=== PATIENT | female | born 1960 | race Caucasian/White ===

== ENCOUNTER 2018-04-28 20:54 | Inpatient (IN) | payer BC ==
[2018-04-28] MEDS ORDERED: Succinylcholine Chloride 20 MG/ML 10 ml SYRINGE FS ONE (21:07)
[2018-04-28] MEDS ORDERED: Naloxone HCl 0.4 mg/ml Vial ONE (21:09)
[2018-04-28 21:25] LABS: Base Excess-Venous -4.9 mmol/L (0 (+/- 2.5)); Bicarbonate (HCO3v) 19.9 mmol/L (1.0-85.0); CO2 Tension (PvCO2) 34.9 mmHg (41.0-51.0); Calcium, Ionized 1.03 mmol/L (1.12-1.32); Hemoglobin - Calc 10.8 g/dL (12.0-18.0); Lactate 1.13 mmol/L (0.50-2.20); Potassium 3.8 mmol/L (3.4-4.7); T. Carbon Dioxide 20.9 mmol/L (1.0-85.0); pH (Venous) 7.363 (7.35-7.45); vO2 Saturation-calc 57.9 % (94-98)
[2018-04-28] MEDS ORDERED: Propofol 1,000 MG/100 ML VIAL IV ONE (21:32)
[2018-04-28 21:35] LABS: Mean Corpuscular HGB CONC 32.8 g/dL (32.0-36.0); Mean Corpuscular Volume 82.4 fL (78.0-98.0); Platelet Count 362 thou/uL (130-400); RBC Distribution Width 14.9 % (11.5-14.5); Red Blood Cell (RBC) Count 3.71 mill/uL (4.20-5.40); White Blood Cell (WBC) Count 16.7 thou/uL (4.8-10.8)
[2018-04-28 21:46] LABS: ALT (SGPT) 9 U/L (8-55); AST (SGOT) 26 U/L (5-34); Albumin 3.8 g/dL (3.5-5.0); Alkaline Phosphatase 96 U/L (40-150); Anion Gap 13 mmol/L (10-20); BUN (Urea Nitrogen) 23 mg/dL (9.8-20.1); Bilirubin, Total 0.2 mg/dL (0.2-1.2); CRP (Inflammatory) 12.78 mg/dL (= or < 0.5); Calc. Creatinine Clearance 0 mL/min (70-130); Calcium 9.1 mg/dL (7.8-10.44); Carbon Dioxide 21 mmol/L (22-29); Chloride 107 mmol/L (98-107); Estimated GFR-MDRD 38; Globulin 3.7 g/dL (2.4-3.5); Glucose 106 mg/dL (70-105); Protein, Total 7.5 g/dL (6.0-8.3); Sodium 137 mmol/L (136-145)
[2018-04-28] MEDS ORDERED: Lorazepam 2 MG/ML VIAL ONE (21:46)
[2018-04-28 21:56] LABS: Acetaminophen Less than 6.0 mcg/mL (10.0-30.0); Alcohol Less than 10 mg/dL (Less than 10); Band 3 % (5-11); Lymphocytes 10 % (21-51); MDiff Complete? YES; Macrocytosis SLIGHT = 6-15 cells (100X) (0-5/hpf); Monocytes 4 % (0-10); Neutrophil 83 % (42-75); PLT Morphology Comment Appears Adequate; Salicylate Less than 8.0 mg/dL (15.0-30.0)
[2018-04-28 22:05] LABS: Actual Bicarbonate (HCO3a) 17.9 mEq/L (22-28); Base Excess (BEa) -7.9 mEq/L (-2.0 to +3.0); CO2 Tension 37.8 mmHg (35.0-45.0); Hematocrit-ABG 28.4 % (36.0-47.0); Hemoglobin (Hb) 8.3 g/dL (12.0-16.0); O2 Tension (PaO2) 152.7 mmHg (80.0-100.0)
[2018-04-28 22:06] LABS: Calcium, Ionized 1.2 mmol/L (1.12-1.30)
[2018-04-28 22:07] LABS: Analyzer IN Cardio ER; Puncture Site RBA
[2018-04-28 22:31] LABS: Bilirubin Negative (Negative); Blood, Urine Negative (Negative); Clarity CLEAR (Clear); Glucose, Urine (Dipstick) Negative (Negative); Leukocyte Negative (Negative); Nitrite Negative (Negative); Protein, Urine (Dipstick) Negative (Neg-Trace); Specific Gravity, Urine 1.021 (1.002-1.036); Urobilinogen 0.2 mg/dL (0.2-1.0)
--- NOTE | 2018-04-28 22:31 | RAD ---
ONE VIEW CHEST: 04/28/18 HISTORY: Altered mental status. Patient found with unknown cause of altered mental status. Neck pain. COMPARISON: 12/29/16 FINDINGS: Redemonstration of a cervical fusion plate. Endotracheal tube at the level of the clavicles. Nasogast nohemy tube is in the left upper quadrant. Heart size is normal. There are bilateral perihilar interstit ial and alveolar infiltrates. No pleural effusion. No pneumothorax or osseous abnormality. IMPRESSION: 1. Endotracheal and nasogastric tube as above. 2. Bilateral interstitial and alveolar infiltrates. Correlate for edema, aspiration versus pneum onia. POS: [facility]
[2018-04-28 22:38] LABS: Amphetamine Detected (NotDetected); Barbiturates Screen Not Detected (NotDetected); Benzodiazepine Screen Not Detected (NotDetected); Cocaine Metabolite Screen Not Detected (NotDetected); Medtox Control Line Valid? VALID (VALID); Medtox Reader # READER 1; Methadone Not Detected (NotDetected); Methamphetamine Not Detected (NotDetected); Opiate Screen Not Detected (NotDetected); Oxycodone Screen Not Detected (NotDetected); Phencyclidine (PCP) Not Detected (NotDetected); THC/Cannabinoid Screen Not Detected (NotDetected); Tricyclic Screen Detected (NotDetected)
--- NOTE | 2018-04-28 22:40 | CT ---
HEAD CT WITHOUT CONTRAST 04/28/18 COMPARISON: 01/12/17. HISTORY: Altered mental status. Evaluate for possible overdose. FINDINGS: No parenchymal hemorrhage. No extra-axial hematoma. No midline shift. Basilar cisterns are patent. Br ain volume is age appropriate. Cortical lawrence-white matter differentiation is preserved. Ventricles and sulci are patent and symmetric. There is left maxillary sinus disease. Mild mucosal thickening of the anterior ethmoid air cells. Keerthi quate mastoid air cell aeration. The calvarium is intact. IMPRESSION: 1. No acute intracranial process. 2. Left sinus disease. POS: [facility]
[2018-04-28] MEDS ORDERED: Piperacillin/Tazobactam 4.5 GM VIAL ONE (22:44)
[2018-04-28] MEDS ORDERED: Sodium Chloride 0.9% 100 ML ONE (22:44)
[2018-04-28 22:46] LABS: Troponin I Less than 0.010 ng/mL (< 0.028)
[2018-04-28 22:49] LABS: CKMB 11.6 ng/mL (0-6.6)
--- NOTE | 2018-04-28 22:58 | CT ---
CT CERVICAL SPINE WITHOUT CONTRAST: 04/28/18 HISTORY: Possible overdose. Altered mental status. COMPARISON: 01/12/17. FINDINGS: No craniocervical dissociation. Lateral masses of C1 and C2 as well as the facets have appropriate ar ticulation. There is straightening of the normal cervical lordosis with slight reversal of lordosis c entered at C5-C6. Findings are unchanged from the previous examination. There is stable anterolisthes is of C3 upon C4. Uncomplicated cervical fusion hardware at C5, C6 and C7. Disc prosthesis at C5-C6 a nd C6-C7 is noted. There is no prevertebral soft tissue swelling. There are varying degrees of central canal stenosis an d foraminal narrowing on the basis of degenerative change. Evaluation is limited by technique. Heterogeneous thyroid gland is noted. There are bilateral alveolar opacities in the lung apices. René elate for volume overload, aspiration, lung parenchymal changes secondary to inhalation of a noxious substance. Note is made of an endotracheal and nasogastric tube. Cervical spine vertebral body height is maintained. There are no cervical spine fractures. IMPRESSION: 1. No cervical spine fracture. 2. Uncomplicated cervical fusion hardware. Stable degenerative changes with stable alignment of the cervical spine. 3. Alveolar opacities in the visualized lung apices as described above. Correlate for volume ove rload, pulmonary edema, aspiration, lung parenchymal changes due to inhalation of a noxious substance . POS: [facility]
[2018-04-28 22:59] LABS: Magnesium 2.2 mg/dL (1.6-2.6)
[2018-04-28] MEDS ORDERED: Vancomycin HCl 1.25 GM in Sodium Chloride 0.9% 250 ML 250 ML IVPB SCH (23:00)
[2018-04-29] MEDS ORDERED: Propofol 1,000 MG/100 ML VIAL IV PRN (00:14)
[2018-04-29] MEDS ORDERED: Lorazepam 2 MG/ML VIAL SLOW IVP PRN ×2 (00:18→02:24)
[2018-04-29] MEDS ORDERED: fentaNYL Citrate/PF 2,000 MCG in Sodium Chloride 0.9% 60 ML IV SCH ×2 (00:18→02:24)
[2018-04-29] MEDS ORDERED: Propofol BOLUS 1,000 MG/100 ML VIAL IV PRN ×2 (00:18→02:24)
[2018-04-29] MEDS ORDERED: DISCONTINUE PREVIOUS NARCOTIC PAIN MEDICATIONS AND BENZODIAZEPINES FS SCH ×2 (00:18→02:24)
[2018-04-29] MEDS ORDERED: Fentanyl BOLUS 250 ML IVPB PRN ×2 (00:18→02:24)
[2018-04-29] MEDS ORDERED: Acetaminophen 650 MG/20.3 ML UDCUP PO PRN (02:11)
[2018-04-29] MEDS ORDERED: Acetaminophen 650 MG Suppository PR PRN (02:11)
[2018-04-29] MEDS ORDERED: Lacri-Lube Opth Oint 3.5 GM TUBE EA EYE PRN (02:11)
[2018-04-29] MEDS ORDERED: Bisacodyl 10 MG SUPP PR PRN (02:14)
[2018-04-29] MEDS ORDERED: Ventilator Sedation Protocol 1 EACH FS SCH (02:15)
[2018-04-29] MEDS ORDERED: hydrALAZINE 20 MG/ML VIAL SLOW IVP PRN (02:17)
--- NOTE | 2018-04-29 02:35 | HP ---
DATE OF ADMISSION: 04/28/2018 PRIMARY CARE PHYSICIAN: Dr. Noland. PRIMARY PAIN SPECIALIST: Dr. Gomes. CHIEF COMPLAINT: Altered mentation. HISTORY OF PRESENT ILLNESS: Patient is a 57-year-old female with chronic pain syndrome, was brought in to the emergency room by EMS with the above complaints. EMS received a call from the neighbor who found the patient's dog barking loudly. When the EMS arrived, the patient was conscious enough to r eport that she has neck pain. On her way to the ER, her mentation gradually got worse. She was subs equently intubated. PAST MEDICAL HISTORY: 1. Chronic systolic heart failure, ejection fraction 20-25%. 2. Chronic pain syndrome. 3. History of tobacco abuse. 4. Depression. 5. Gastroesophageal reflux disease. 6. Tension headaches. 7. Gastroparesis. 8. Chronic obstructive pulmonary disease. PAST SURGICAL HISTORY: 1. x2. 2. Cervical fusion in 2015. 3. Adenoidectomy. 4. Breast cyst removal. 5. Right shoulder repair. 6. Lumbar epidural steroid injection on 04/08/[address] Gomes. ALLERGIES: Patient is allergic to SULFA AND CIPROFLOXACIN. CURRENT HOME MEDICATIONS: To be verified. There is a large plastic bag of all the medication bottle s brought by EMS at the bedside. All these medications need to be verified. FAMILY HISTORY: Cannot be obtained from the patient due to current cognitive status. REVIEW OF SYSTEMS: Cannot be obtained from the patient due to the same reason. SOCIAL HISTORY: Patient has a history of smoking. She has a history of prescription drug abuse in t he past from 2013's H&P. PHYSICAL EXAMINATION: VITAL SIGNS: Temperature 98.1, respirations 16, pulse rate of 86, blood pressure of 108/67 with O2 s aturation 96% on room air. GENERAL: A 57-year-old female, intubated on propofol drip. HEENT: Head atraumatic, normocephalic. Sclerae are anicteric. Endotracheal tube noted. Moist muco us membranes. NECK: Supple, no JVD. LUNGS: Showed scattered rhonchi with some bibasilar rales. No significant wheezing appreciated. HEART: S1, S2 present. Regular rate and rhythm. No murmur, rubs, or gallops appreciated. ABDOMEN: Soft. Bowel sounds present. No rebound or guarding. EXTREMITIES: No edema or calf tenderness. NEUROLOGIC: Could not be done due to current cognitive status. SKIN: Warm and dry. LYMPH NODES: No palpable lymph nodes in the neck. PERIPHERAL VASCULAR: Radial pulses palpable bilaterally. MUSCULOSKELETAL: No joint swelling or tenderness. LABORATORY FINDINGS: CBC showed WBC 16.7 with hemoglobin 10, hematocrit 30.6, platelet count of 362. ABG showed pH 7.30 with pCO2 of 37.8, pO2 of 152.7, bicarbonate of 18 on mechanical ventilation. C hemistry showed sodium 140, potassium 3.8, chloride 112, bicarbonate 21, BUN 23, creatinine 1.42, CRP was 12.7. TSH was 0.4. Urinalysis was negative. Urine drug screen was positive for tricyclics and amphetamines. Cervical spine CT was negative for acute fractures. CT scan of the brain was negativ e for acute findings. Chest x-ray by my review showed bilateral interstitial and alveolar infiltrate s. Ammonia level was 29. Lactic acid was 1.3. EKG by my review showed sinus rhythm. IMPRESSION: 1. Acute hypoxic respiratory failure. 2. Toxic metabolic encephalopathy probably secondary to pain medications. 3. Sepsis with acute organ dysfunction, suspected secondary to aspiration pneumonia. 4. Chronic systolic heart failure, ejection fraction 20-25% in the past. 5. Negative cardiac catheterization in 2013. 6. Chronic pain syndrome. 7. History of tobacco abuse. 8. Depression. 9. Gastroesophageal reflux disease. 10. Acute kidney injury on chronic kidney disease stage 2. 11. Elevated inflammatory markers. CRP is 12.7. 12. SULFA AND CIPROFLOXACIN allergy. 13. Chronic anemia. 14. Chronic obstructive pulmonary disease. PLAN: Patient will be monitored in the Intensive Care Unit setting. [facility] medications will be [facility]. Per outpatient pharmacy record, patient recently filled a prescription for hydroxyzine on 2017, phentermine earlier this month, Flexeril, baclofen, Tylenol #3, trazodone, naltrexone, Cymbalta . We will minimize sedatives. Consult Critical Care. Nebulizer treatment. Antibiotics for aspirat ion pneumonia. Repeat chest x-ray and ABG in a.m. We will hold on of her home medications. Gentle IV hydration. Monitor for volume overload due to history of congestive heart failure. Check BNP in a.m. Gastrointestinal prophylaxis.
[2018-04-29] MEDS: Dextrose 5 %-0.45 % NaCl 1,000 ML IV SCH ×2 (03:34→14:32)
[2018-04-29] MEDS: Propofol 1,000 MG/100 ML VIAL IV PRN ×2 (03:36→10:06)
[2018-04-29] MEDS ORDERED: Piperacillin/Tazobactam 4.5 GM in Sodium Chloride 0.9% 100 ML IVPB SCH (05:00)
[2018-04-29] MEDS: Piperacillin/Tazobactam 3.375 GM in Sodium Chloride 0.9% 100 ML IVPB SCH ×4 (05:37→23:18)
[2018-04-29] MEDS: Mometasone/Formoterol 120 PUFF INHALER INH SCH ×2 (07:00→18:23)
[2018-04-29 07:06] LABS: Actual Bicarbonate (HCO3a) 20.3 mEq/L (22-28); Base Excess (BEa) -4.8 mEq/L (-2.0 to +3.0); CO2 Tension 37.7 mmHg (35.0-45.0); Hemoglobin (Hb) 8.3 g/dL (12.0-16.0); O2 Tension (PaO2) 96.6 mmHg (80.0-100.0); pH, Arterial 7.35 (7.35-7.45)
[2018-04-29 07:11] LABS: ALV-art Gradient 141.475 (0-20); Calcium, Ionized 1.1 mmol/L (1.12-1.30); Puncture Site RRA
[2018-04-29] MEDS ORDERED: Vancomycin HCl 1.25 GM in Sodium Chloride 0.9% 250 ML 250 ML IVPB SCH (10:00)
[2018-04-29] MEDS: Famotidine/PF 20 mg/2ml Vial SLOW IVP SCH ×2 (10:03→20:38)
[2018-04-29] MEDS: Heparin 5,000 UNITS/ML VIAL SC SCH ×2 (10:04→20:39)
--- NOTE | 2018-04-29 10:05 | PDOC.PN ---
- Subjective Encounter Start Date: 04/29/18 Encounter Start Time: 10:03 Ms. Barron was seen today in follow-up of polysubstance abuse, and polypharmacy. she is intubated, and awake. she will squeeze your hand on command. - Objective Resuscitation Status: Resuscitation Status FULL:Full Resuscitation MAR Reviewed: Yes Vital Signs & Weight: Vital Signs (12 hours) Temp Pulse Resp Pulse Ox 04/29/18 08:00 99.3 F 72 16 04/29/18 07:00 99.3 F 04/29/18 06:58 70 04/29/18 06:00 17 04/29/18 04:00 98.1 F 14 04/29/18 02:23 79 04/29/18 02:00 14 04/29/18 00:45 98.2 F 73 14 99 04/29/18 00:23 92 Weight Weight 179 lb 10.828 oz Most Recent Monitor Data Heart Rate from ECG 68 NIBP 107/53 NIBP BP-Mean 84 Respiration from ECG 19 SpO2 100 I&O: 04/28/18 04/29/18 04/30/18 06:59 06:59 06:59 Intake Total 545 Output Total 435 100 Balance 110 -100 Result Diagrams: 04/28/18 21:15 04/28/18 21:15 Phys Exam - Physical Examination HEENT: PERRLA + rhonchi and coarse breath sounds Cardiovascular: RRR, no significant murmur, no rub Gastrointestinal: soft, non-tender, positive bowel sounds Musculoskeletal: no edema Dx/Plan (1) Acute respiratory failure Code(s): J96.00 - ACUTE RESPIRATORY FAILURE, UNSP W HYPOXIA OR HYPERCAPNIA Status: Acute (2) Polypharmacy Code(s): Z79.899 - OTHER CARE HOME (CURRENT) DRUG THERAPY Status: Acute (3) Substance abuse Code(s): F19.10 - OTHER PSYCHOACTIVE SUBSTANCE ABUSE, UNCOMPLICATED Status: Acute (4) COPD (chronic obstructive pulmonary disease) Status: Chronic Qualifiers: COPD type: chronic bronchitis Chronic bronchitis type: unspecified Qualified Code(s): J42 - Unspecified chronic bronchitis (5) HTN (hypertension) Code(s): I10 - ESSENTIAL (PRIMARY) HYPERTENSION Status: Chronic Qualifiers: Hypertension type: essential hypertension Qualified Code(s): I10 - Essential (primary) hypertension - Plan * Aspiration Pneumonia- Continue Zosyn, and Vancomycin * Respiratory failure- from aspiration and likely overdose on medication,and ilicit drug use * She also has a history of cardiomyopathy with an EF of 25% on her last Echo- this was several years ago. She has bilateral infiltrates, so will check an Echo to assess her EF * HTN- blood pressure is stable * Await further recommendations from PCCM.
[2018-04-29] MEDS: Vancomycin HCl 750 MG in Sodium Chloride 0.9% 250 ML 250 ML IVPB SCH (11:11)
[2018-04-29 14:38] VITALS: BMI 32.8
[2018-04-30] MEDS: Vancomycin HCl 750 MG in Sodium Chloride 0.9% 250 ML 250 ML IVPB SCH (00:13)
[2018-04-30 04:23] LABS: Band 8 % (5-11); Hemoglobin 8.5 g/dL (12.0-16.0); Lymphocytes 15 % (21-51); MDiff Complete? YES; Mean Corpuscular HGB CONC 33.5 g/dL (32.0-36.0); Mean Corpuscular Hemoglobin 27.3 pg (27.0-31.0); Mean Corpuscular Volume 81.6 fL (78.0-98.0); Mean Platelet Volume 6.9 fL (7.4-10.4); Metamyelocyte 1 % (0-0); Monocytes 3 % (0-10); Neutrophil 73 % (42-75); PLT Morphology Comment Appears Adequate; Platelet Count 358 thou/uL (130-400); Red Blood Cell (RBC) Count 3.12 mill/uL (4.20-5.40); White Blood Cell (WBC) Count 8.8 thou/uL (4.8-10.8)
[2018-04-30 04:44] LABS: Anion Gap 11 mmol/L (10-20); BUN (Urea Nitrogen) 12 mg/dL (9.8-20.1); Calc. Creatinine Clearance 117 mL/min (70-130); Calcium 8.8 mg/dL (7.8-10.44); Carbon Dioxide 21 mmol/L (22-29); Chloride 109 mmol/L (98-107); Estimated GFR-MDRD 87; Glucose 127 mg/dL (70-105); Potassium 3.6 mmol/L (3.5-5.1); Sodium 137 mmol/L (136-145)
[2018-04-30] MEDS: Piperacillin/Tazobactam 3.375 GM in Sodium Chloride 0.9% 100 ML IVPB SCH (05:33)
[2018-04-30] MEDS: Dextrose 5 %-0.45 % NaCl 1,000 ML IV SCH ×2 (05:34→10:07)
[2018-04-30] MEDS: Mometasone/Formoterol 120 PUFF INHALER INH SCH ×2 (07:12→20:16)
--- NOTE | 2018-04-30 09:00 | CON ---
DATE OF CONSULTATION: 04/29/2018 Ms. Barron is a 57-year-old female. She has a shopping bag full of home prescription drugs. Siste r at the bedside. Ms. Barron is a 57-year-old in emergency room, apparently she was found unrespon sive subsequently intubated. I was consulted to assist in her management. PAST MEDICAL HISTORY: Remarkable for: 1. Systolic cardiomyopathy. 2. Depression. 3. Reflux disease. 4. Gastroparesis. 5. Chronic obstructive pulmonary disease. 6. C-sections. 7. Cervical fusion. 8. Breast cyst removal. 9. Shoulder surgery on the right. 10. History of steroid injections epidural by Dr. Gomes. She has had multiple clinic and ER visits here. She had a sleep study that showed mild sleep apnea in the past. CPAP was prescribed at 13 cm of wate r pressure. History of respiratory failure in 2013, requiring intubation for pulmonary edema. On that admission, she came in with altered mental status, felt to be brought in by her home medications. She claimed she had taken an extra BACLOFEN. FAMILY HISTORY: Negative for lung disease in early age. She has 2 children. Per my note in 2013, her children were estranged. Her sister told me back then that she was at her the patient was living with her father. Her mother and father according to her sister and they were close to asking her to leave the house back then. I put in my notes back i n 2013 that she had a long history of multiple substance abuses as well as opiates in the past. PHYSICAL EXAMINATION: GENERAL: When she was seen this morning, she was awakened propofol was discontinued and she aw akened completely. HEENT: Pupils were reactive. Sclerae is anicteric. Extraocular movements are full. NECK: Supple. LUNGS: Clear. HEART: Regular rhythm, no S3, no murmur. ABDOMEN: Soft and nontender. EXTREMITIES: Without clubbing, cyanosis, or edema. LABORATORY DATA: White count 16.7, hemoglobin 10.0, platelets 162,000. Electrolytes were normal. D rug screen was positive for tricyclics and amphetamines. IMPRESSION: Drug overdose, likely inadvertent secondary to chronic substance abuse. [place] she was a candidate for extubation. She subsequently has been extubated and reevaluated during the day and she has been stable throughout the day. Critical care time 40 minutes.
[2018-04-30] MEDS: Famotidine/PF 20 mg/2ml Vial SLOW IVP SCH (10:07)
[2018-04-30] MEDS: Heparin 5,000 UNITS/ML VIAL SC SCH ×2 (10:08→21:19)
--- NOTE | 2018-04-30 10:50 | PDOC.PN ---
- Subjective Encounter Start Date: 04/30/18 Encounter Start Time: 10:48 Ms. Barron was seen today in follow-up of accidental overdose. and substance abuse. She says she feels fine today, much better than yesterday. She admits to a little cough. - Objective Resuscitation Status: Resuscitation Status FULL:Full Resuscitation MAR Reviewed: Yes Vital Signs & Weight: Vital Signs (12 hours) Temp Pulse Resp Pulse Ox 04/30/18 07:12 84 24 H 99 04/30/18 06:59 99 04/30/18 06:57 84 24 H 99 04/30/18 04:00 98.2 F 04/30/18 01:00 99.1 F 04/30/18 00:29 80 26 H 97 Weight Admit Weight 179 lb 10.88 oz Weight 180 lb 6.4 oz Most Recent Monitor Data Heart Rate from ECG 82 NIBP 145/71 NIBP BP-Mean 120 Respiration from ECG 20 SpO2 100 I&O: 04/29/18 04/30/18 05/01/18 06:59 06:59 06:59 Intake Total 545 3746 Output Total 435 1560 Balance 110 2186 Result Diagrams: 04/30/18 03:36 04/30/18 03:36 Phys Exam - Physical Examination HEENT: PERRLA Respiratory: no wheezing, no rales, no rhonchi, clear to auscultation bilateral Cardiovascular: RRR, no significant murmur Gastrointestinal: soft, non-tender, positive bowel sounds Musculoskeletal: no edema Dx/Plan (1) Acute respiratory failure Code(s): J96.00 - ACUTE RESPIRATORY FAILURE, UNSP W HYPOXIA OR HYPERCAPNIA Status: Acute (2) Polypharmacy Code(s): Z79.899 - OTHER [facility] (CURRENT) DRUG THERAPY Status: Acute (3) Substance abuse Code(s): F19.10 - OTHER PSYCHOACTIVE SUBSTANCE ABUSE, UNCOMPLICATED Status: Acute (4) COPD (chronic obstructive pulmonary disease) Status: Chronic Qualifiers: COPD type: chronic bronchitis Chronic bronchitis type: unspecified Qualified Code(s): J42 - Unspecified chronic bronchitis (5) HTN (hypertension) Code(s): I10 - ESSENTIAL (PRIMARY) HYPERTENSION Status: Chronic Qualifiers: Hypertension type: essential hypertension Qualified Code(s): I10 - Essential (primary) hypertension - Plan * Accidental Overdose-she has improved, she is extubated * Can transfer her out of the ICU * ? Aspiration pneumonia- will change her antibiotics to p.o. * Discussed with her the dangers of mixing medications * Will narrow down her muscle relaxers to just one- Baclofen * Hopefully home tomorrow.
--- NOTE | 2018-04-30 10:56 | RAD ---
PORTABLE UPRIGHT FRONTAL CHEST RADIOGRAPH: Date: 04-30-18 Comparison: 04-28-18 History: CCU patient. FINDINGS: Endotracheal tube and nasogastric tube have been removed since prior imaging. Cervical spine hardware is present and there is a post-operative anchor associated with the right humeral head. There is hazy interstitial and alveolar opacity in bilateral perihilar regions as well as the right s uprahilar region and the left lung base. This nonspecific interstitial and alveolar opacity has impro daron in the upper lobes and has slightly worsened in the left base. IMPRESSION: Nonspecific interstitial and alveolar opacity may signify inflammatory/infectious pneumonitis. Follow up imaging to document resolution advised. POS: [facility]
[2018-04-30 11:37] LABS: Vancomycin, Trough 9.6 ug/mL
[2018-04-30] MEDS ORDERED: Furosemide 40 MG TAB PO PRN (11:47)
--- NOTE | 2018-04-30 13:01 | PRG ---
DATE OF SERVICE: 04/30/2018 SUBJECTIVE: Ms. Barron is awake and alert, in no distress. OBJECTIVE: VITAL SIGNS: She is afebrile, heart rate is 91, blood pressure 151/78, respiratory rate is in the 20 s. LUNGS: Clear. HEART: Regular rhythm. ABDOMEN: Soft and nontender. EXTREMITIES: No clubbing, cyanosis or edema. IMAGING: Chest radiograph shows same bilateral infiltrates. LABORATORY DATA: White count 8.8, hemoglobin 8.5, platelets 158,000. Sodium 137, potassium 3.6, chloride 109, bicarbonate 21, BUN 12, creatinine 0.7. IMPRESSION: 1. Respiratory failure, presumably secondary to drug overdose. I discussed management of her narcot ic use and sedative use and she acknowledged that she needs to do better at working to not have this problem again. 2. Systolic cardiomyopathy. Her pulmonary infiltrates could be either aspiration mediated or small pulmonary edema. She is stable to move out of the Critical Care Unit. 3. History of gastroparesis. 4. History of chronic obstructive pulmonary disease. 5. Mild sleep apnea on 13 cm of water pressure CPAP. PLAN: Continue supportive care.
--- NOTE | 2018-04-30 13:26 | PQF ---
CLINICAL DOCUMENTATION IMPROVEMENT CLARIFICATION FORM: ICD-10 Updated PLEASE DO AN ADDENDUM TO THE PROGRESS NOTE WITH ANY DOCUMENTATION UPDATES OR ADDITIONS AND CARRY THROUGH TO DC SUMMARY. THANK YOU. DATE: 04/30/18 ATTN: Dr. Donato Please exercise your independent, professional judgment in responding to the clarification form. Clinical indicators are provided on the bottom of this form for your review Please check appropriate box(s) to clarify if the following diagnosis has been ruled in or ruled out: SEPSIS (H&P) [ ] Ruled in diagnosis [ ] Continue to treat [ ] Resolved [ ] Ruled out diagnosis [ ] Cannot rule out diagnosis [ ] Other diagnosis [ ] Unable to determine In addition, please specify: Present on Admission (POA): [ ] Yes [ ] No [ ] Unable to determine For continuity of documentation, please document condition throughout progress notes and discharge summary. Thank You. CLINICAL INDICATORS - SIGNS / SYMPTOMS / LABS H&P 04/29: ALTERED MENTATION WBC 16.7 ACUTE HYPOXIC RESPIRATORY FAILURE SEPSIS W/ ACUTE ORGAN DYSFUNCTION, SUSPECTED SECONDARY TO ASPIRATION PNEUMONIA PN 04/30: ACCIDENTAL OVERDOSE - SHE HAS IMPROVED, SHE IS EXTUBATED. ? ASPIRATION PNEUMONIA. RISKS: H&P 04/29: TOXIC METABOLIC ENCEPHALOPATHY PROBABLY SECONDARY TO PAIN MEDICATIONS. CHRONIC PAIN SYNDROME. PERLA ON CKD 2. COPD. TREATMENT: PN 04/29: ASPIRATION PNEUMONIA - CONTINUE ZOSYN & VANCOMYCIN Thank you, Page (This form is maintained as a part of the permanent medical record) 2015 [email or web address] All Rights Reserved Page Davalos RN, BSN [email or web address] Office: [phone] [facility]
[2018-04-30] MEDS: Acetaminophen 325 MG TAB PO PRN ×2 (14:40→21:18)
[2018-04-30] MEDS: Benzonatate 100 MG CAP PO PRN ×2 (14:41→21:19)
[2018-04-30] MEDS ORDERED: Montelukast Sodium 10 mg Tablet PO SCH (21:00)
[2018-04-30] MEDS: Famotidine 20 MG TAB PO SCH (21:16)
[2018-04-30] MEDS: Amoxicillin/Potassium Clav 875 MG TAB PO SCH (21:16)
[2018-04-30] MEDS: Topiramate 100 MG TAB PO SCH (21:17)
[2018-04-30] MEDS: busPIRone HCl 10 MG TAB PO SCH (21:17)
[2018-04-30] MEDS: Carvedilol 3.125 MG TAB PO SCH (21:18)
[2018-05-01] MEDS: Mometasone/Formoterol 120 PUFF INHALER INH SCH (06:03)
[2018-05-01] MEDS: Famotidine 20 MG TAB PO SCH (08:25)
[2018-05-01] MEDS: Topiramate 100 MG TAB PO SCH (08:25)
[2018-05-01] MEDS: Heparin 5,000 UNITS/ML VIAL SC SCH (08:26)
[2018-05-01] MEDS: Carvedilol 3.125 MG TAB PO SCH (08:26)
[2018-05-01] MEDS: Amoxicillin/Potassium Clav 875 MG TAB PO SCH (08:26)
[2018-05-01] MEDS: busPIRone HCl 10 MG TAB PO SCH (08:26)
[2018-05-01] MEDS ORDERED: DULoxetine 30 MG CAP PO SCH (09:00)
[2018-05-01] MEDS ORDERED: Lisinopril 2.5 MG TAB PO SCH (09:00)
--- NOTE | 2018-05-01 11:17 | EKG ---
Test Reason : Blood Pressure : / mmHG Vent. Rate : 082 BPM Atrial Rate : 082 BPM P-R Int : 200 ms QRS Dur : 096 ms QT Int : 376 ms P-R-T Axes : 044 052 062 degrees QTc Int : 439 ms Normal sinus rhythm Low voltage QRS Borderline ECG Confirmed by ADRIANA GODDARD M.D. ([id number]), features editor RODDY GARCÍA ([id number]) on 05/01/2018 11:17:10 AM Referred By: Confirmed By:ADRIANA GODDARD M.D.
[2018-05-01 13:15] VITALS: BP 156/89; TEMP 97.7
--- NOTE | 2018-05-01 14:08 | PDOC.PN ---
- Subjective Encounter Start Date: 05/01/18 Encounter Start Time: 14:05 Ms. Barron was seen today in follow-up. She does not have any complaints this morning other than diarrhea which she says started when she was placed on antibiotics. - Objective Resuscitation Status: Resuscitation Status FULL:Full Resuscitation MAR Reviewed: Yes Vital Signs & Weight: Vital Signs (12 hours) Temp Pulse Resp BP BP Pulse Ox 05/01/18 11:37 93 16 97 05/01/18 11:30 97.7 F 93 16 156/89 H 95 05/01/18 08:24 100 144/80 H 05/01/18 07:55 97.8 F 100 18 92 L 05/01/18 07:35 97.8 F 100 18 144/80 H 92 L 05/01/18 06:03 86 16 96 05/01/18 06:02 86 16 96 05/01/18 04:00 97.9 F 85 16 144/85 H 94 L Weight Admit Weight 179 lb 10.88 oz Weight 180 lb 6.4 oz Most Recent Monitor Data Heart Rate from ECG 87 NIBP 143/75 NIBP BP-Mean 103 Respiration from ECG 22 SpO2 94 I&O: 04/30/18 05/01/18 05/02/18 06:59 06:59 06:59 Intake Total 3746 1095 Output Total 1560 1051 Balance 2186 44 Result Diagrams: 04/30/18 03:36 04/30/18 03:36 Phys Exam - Physical Examination HEENT: PERRLA Respiratory: no wheezing, no rales, no rhonchi, clear to auscultation bilateral Cardiovascular: RRR, no significant murmur, no rub Gastrointestinal: soft, non-tender, positive bowel sounds Musculoskeletal: no edema Dx/Plan (1) Acute respiratory failure Code(s): J96.00 - ACUTE RESPIRATORY FAILURE, UNSP W HYPOXIA OR HYPERCAPNIA Status: Acute (2) Polypharmacy Code(s): Z79.899 - OTHER [employer] (CURRENT) DRUG THERAPY Status: Acute (3) Substance abuse Code(s): F19.10 - OTHER PSYCHOACTIVE SUBSTANCE ABUSE, UNCOMPLICATED Status: Acute (4) COPD (chronic obstructive pulmonary disease) Status: Chronic Qualifiers: COPD type: chronic bronchitis Chronic bronchitis type: unspecified Qualified Code(s): J42 - Unspecified chronic bronchitis (5) HTN (hypertension) Code(s): I10 - ESSENTIAL (PRIMARY) HYPERTENSION Status: Chronic Qualifiers: Hypertension type: essential hypertension Qualified Code(s): I10 - Essential (primary) hypertension - Plan * Accidental Overdose- resolved * Sepsis has been ruled out * Her lung exam is clear, and she clinically does not have signs of pneumonia- will discontinue antibiotics * She is stable for discharge home.
--- NOTE | 2018-05-01 17:48 | PRG ---
DATE OF SERVICE: 05/01/2018 SUBJECTIVE: This morning she is awake, alert, responsive, in no distress, eager to go home. OBJECTIVE: VITAL SIGNS: Sats are 93% room air, temperature 97, respiration 16, and blood pressure 144/80. CHEST: Decreased breath sounds, no wheezing. CARDIAC: Normal S1 and S2. ABDOMEN: No gallops, no masses. IMPRESSION: 1. Chronic pain. 2. Possibly aspiration pneumonia, overdose on medication. PLAN: She will be discharged home on antibiotics for 5 days. Follow up with her primary care physic abbi. Pulmonary or Critical Care will follow at a distance.
--- NOTE | 2018-05-02 00:16 | DIS ---
DATE OF ADMISSION: 04/29/2018 DATE OF DISCHARGE: 05/01/2018 PRIMARY CARE PHYSICIAN: Dr. Noland. DISCHARGE DISPOSITION: Home. PRIMARY DISCHARGE DIAGNOSES: 1. Accidental overdose. 2. Illicit drug use. 3. History of chronic systolic heart failure with an ejection fraction of 20-25%. 4. Chronic pain syndrome. 5. Tobacco abuse. 6. Depression. 7. Gastroesophageal reflux disease. 8. Tension headaches. 9. Gastroparesis. 10. Chronic obstructive pulmonary disease. PROCEDURES DONE DURING ADMISSION: The patient had a CT of her cervical spine and there was no eviden ce of any spinal fracture and uncomplicated cervical fusion hardware. The patient had a CT scan of t he brain showing no acute intracranial process and left sinus disease. The patient also had an echoc ardiogram and the ejection fraction was estimated at 50-55%. There was E to A flow reversal noted an d suggestive of diastolic dysfunction. CODE STATUS: FULL CODE. ALLERGIES: SULFA and CIPROFLOXACIN. HOSPITAL COURSE: Ms. Barron is a pleasant 57-year-old female who was found down by her landlord at her apartment. She was brought into the emergency room and intubated to protect her airway. It is unclear whether or not she aspirated. She did have some infiltrates on admission, but it is possible that this could have been some mild volume overload as well. The following day, she was able to be extubated. A large bag of medications were collected from her possessions and it was found that she was on several medications which are sedating. She was on 3 different muscle relaxers including bacl ofen, tizanidine and Flexeril along with gabapentin. Her urine toxicology screen was positive for am phetamines and tricyclics. She was counseled on the dangers of mixing medications. Her medication l ist listed phentermine; however, this was not seen in her bag of medications, so it is unclear whethe r or not she is using illicit methamphetamine or if this was a diet pill. She denied any illicit pierce g use. She was on antibiotics for several days until sepsis and aspiration pneumonia was ruled out a nd she is stable for discharge home with close outpatient followup.
== END 2018-05-01 16:15 | disposition home or self-care (01) | DRG 917 ==
LOC: ERS 20:54 → CCU 04-29 00:14 → SURG A 04-30 21:45
PROVIDERS: ADMIT Internal Medicine; ATTEND Internal Medicine
PROC: 5A1935Z Respiratory Ventilation, Less than 24 Consecutive Hours (ICD-10-PCS; principal; 2018-04-29)
DX: T40.601A Poisoning by unspecified narcotics, accidental (unintentional), initial encounter (principal); J96.01 Acute respiratory failure with hypoxia; G92 Toxic encephalopathy; I50.22 Chronic systolic (congestive) heart failure; N17.9 Acute kidney failure, unspecified; I13.0 Hypertensive heart and chronic kidney disease with heart failure and stage 1 through stage 4 chronic kidney disease, or unspecified chronic kidney disease; I42.9 Cardiomyopathy, unspecified; T42.71XA Poisoning by unspecified antiepileptic and sedative-hypnotic drugs, accidental (unintentional), initial encounter; G89.4 Chronic pain syndrome; J44.9 Chronic obstructive pulmonary disease, unspecified; N18.2 Chronic kidney disease, stage 2 (mild); D63.1 Anemia in chronic kidney disease; K31.84 Gastroparesis; F19.10 Other psychoactive substance abuse, uncomplicated; G47.30 Sleep apnea, unspecified; G44.209 Tension-type headache, unspecified, not intractable; F32.9 Major depressive disorder, single episode, unspecified; K21.9 Gastro-esophageal reflux disease without esophagitis; Z87.891 Personal history of nicotine dependence; Z88.1 Allergy status to other antibiotic agents; Z88.2 Allergy status to sulfonamides
CPT/HCPCS: 31500; 36415; 36416; 51702; 70450; 71045; 72125; 80048; 80053; 80202; 80306; 80307; 81003; 82140; 82330; 82553; 82803; 82805; 83605; 83690; 83735; 83880; 84443; 84484; 85007; 85025; 85027; 86140; 87040; 93005; 93306; 94002; 94003; 94640; 94760; 96365; 96366; 96367; 96375; J1644; J2060; J2310; J2543; J2704; J2920; J3370; J7050; J7620; S0028